=== PATIENT | female | born 1930 | race Caucasian/White ===

== ENCOUNTER 2019-07-20 16:45 | Inpatient (IN) ==
[2019-07-20] MEDS ORDERED: D5% in Water 1,000 ML IVC PRN (20:19)
[2019-07-20] MEDS ORDERED: Naloxone 0.4 MG/ML INJ IVP PRN (20:19)
[2019-07-20] MEDS ORDERED: Dextrose Gel 15 GM/37.5 ML TUBE PO PRN ×2 (20:19)
[2019-07-20] MEDS ORDERED: *HR* Dextrose 50 % in Water (Syg) 50 ML SYRINGE IVP PRN (20:19)
[2019-07-20] MEDS ORDERED: *HR* Heparin 5,000 UNIT/ML VIAL SQ SCH (22:00)
[2019-07-20] MEDS: 0.9 % Sodium Chloride 1,000 ML IVC SCH (22:00)
[2019-07-20] MEDS ORDERED: *HR* Heparin 5,000 UNIT/ML VIAL IVP PRN ×2 (22:13→22:14)
[2019-07-20] MEDS ORDERED: *HR* Heparin 5,000 UNIT/ML VIAL IVP ONE (22:14)
[2019-07-20 22:46] LABS: Sodium, Urine 86.1 mEq/L
[2019-07-20] MEDS: Heparin 25,000 UNIT/250 ML D5W 25,000 UNIT/250 ML IV.SOLN IVC SCH (23:26)
[2019-07-21 00:39] LABS: Hematocrit 38.4 % (35.3-44.9); Hemoglobin 12.1 g/dL (11.5-15.4); Mean Corpuscular HGB Conc 31.5 g/dL (31.6-35.5); Mean Corpuscular Hemoglobin 27.7 pg (28.0-33.3); Mean Corpuscular Volume 87.9 fL (83.0-100.0); Mean Platelet Volume 11.4 fL (9.4-12.4); Platelet Count 225 K/mcL (140-400); Red Blood Count 4.37 M/mcL (3.82-4.97); Red Cell Distribution Width 14.3 % (11.5-14.5); White Blood Count 7.2 K/mcL (4.3-11.1)
[2019-07-21 00:49] LABS: INR 1.2; Prothrombin Time 13.2 Seconds (9.4-12.1)
[2019-07-21 00:54] LABS: Heparin anti-factor XA UFH 1.18 IU/mL (0.30-0.70)
[2019-07-21 02:58] LABS: Basophils % 0.4 %; Hematocrit 37.1 % (35.3-44.9); Hemoglobin 11.5 g/dL (11.5-15.4); Immature Granulocytes % 0.4 % (0-4); Lymphocytes # 1.5 K/mcL (0.6-4.6); Lymphocytes % 21.2 %; Mean Corpuscular Volume 90.5 fL (83.0-100.0); Mean Platelet Volume 11.3 fL (9.4-12.4); Monocytes # 0.8 K/mcL (0.0-1.3); Monocytes % 11.4 %; Neutrophils # 4.7 K/mcL (1.6-8.9); Platelet Count 214 K/mcL (140-400); Red Cell Distribution Width 14.1 % (11.5-14.5); Segmented Neutrophils % 66.6 %
[2019-07-21 03:15] LABS: Albumin 3.3 g/dL (3.5-5.7); Albumin/Globulin Ratio 1.1 (1.1-2.2); Bilirubin,Total 0.6 mg/dL (0.3-1.0); Calcium 8.5 mg/dL (8.6-10.3); Globulin 2.9 g/dL (2.4-3.5); Magnesium 2.3 mg/dL (1.6-2.6); Phosphorous 3.3 mg/dL (2.7-4.5); Potassium 3.9 mEq/L (3.5-5.1); Total Protein 6.2 g/dL (6.4-8.9)
[2019-07-21 03:56] LABS: Estimated Average Glucose 134 mg/dl
[2019-07-21] MEDS: 0.9 % Sodium Chloride 1,000 ML IVC SCH ×2 (05:16→14:33)
[2019-07-21] MEDS: cefTRIAXone 1,000 MG in 0.9 % Sodium Chloride Mini Bag 100 ML IVPB SCH (11:48)
[2019-07-21 23:54] LABS: Bacteria,Urine Few per hpf (None-Few); Bilirubin,Urine Negative (Negative); Blood,Urine Negative (Negative); Clarity,Urine Cloudy (Clear); Color,Urine Yellow (Yellow); Glucose,Urine (UA) Normal (Normal); Hyaline Casts,Urine None Seen per lpf (None-Few); Ketones,Urine Negative (Negative); Leukocyte Esterase,Urine Large (Negative); Nitrite,Urine Negative (Negative); Protein,Urine Trace mg/dL (Neg-Trace); RBC,Urine 15-30 per hpf (0-3); Specific Gravity,Urine 1.015 (1.010-1.025); Squamous Epithelial Cell,Urine Few per lpf (None-Few); Urobilinogen,Urine Normal (Normal); WBC,Urine TNTC per hpf (0-3)
[2019-07-22] MEDS: Cholecalciferol (D-3) 1,000 UNIT (25MCG) TABLET PO SCH (07:55)
[2019-07-22] MEDS: 0.9 % Sodium Chloride 1,000 ML IVC SCH ×2 (07:55→09:54)
[2019-07-22] MEDS: Loratadine 10 MG TABLET PO SCH (07:55)
[2019-07-22] MEDS: Heparin 25,000 UNIT/250 ML D5W 25,000 UNIT/250 ML IV.SOLN IVC SCH (07:56)
[2019-07-22 08:42] LABS: Calcium 8.4 mg/dL (8.6-10.3); Potassium 4.1 mEq/L (3.5-5.1)
[2019-07-22 09:28] LABS: Basophils % 0.3 %; Hematocrit 37.9 % (35.3-44.9); Immature Granulocytes % 0.3 % (0-4); Lymphocytes # 1.2 K/mcL (0.6-4.6); Lymphocytes % 18.2 %; Mean Corpuscular HGB Conc 31.7 g/dL (31.6-35.5); Mean Corpuscular Hemoglobin 27.8 pg (28.0-33.3); Mean Corpuscular Volume 87.7 fL (83.0-100.0); Mean Platelet Volume 11.5 fL (9.4-12.4); Monocytes # 0.7 K/mcL (0.0-1.3); Monocytes % 10.4 %; Neutrophils # 4.6 K/mcL (1.6-8.9); Platelet Count 226 K/mcL (140-400); Red Blood Count 4.32 M/mcL (3.82-4.97); Red Cell Distribution Width 14.3 % (11.5-14.5); Segmented Neutrophils % 70.8 %; White Blood Count 6.5 K/mcL (4.3-11.1)
[2019-07-22] MEDS: cefTRIAXone 1,000 MG in 0.9 % Sodium Chloride Mini Bag 100 ML IVPB SCH (09:55)
[2019-07-22] MEDS ORDERED: Warfarin perPT PO PRN (18:00)
[2019-07-22] MEDS ORDERED: *HR* Warfarin 5 MG TABLET PO ONE (18:00)
[2019-07-23] MEDS: 0.9 % Sodium Chloride 1,000 ML IVC SCH (05:49)
[2019-07-23 06:38] LABS: Basophils % 0.3 %; Hematocrit 34.9 % (35.3-44.9); Hemoglobin 10.7 g/dL (11.5-15.4); Immature Granulocytes % 0.3 % (0-4); Lymphocytes # 1.2 K/mcL (0.6-4.6); Lymphocytes % 18.9 %; Mean Corpuscular HGB Conc 30.7 g/dL (31.6-35.5); Mean Corpuscular Hemoglobin 27.9 pg (28.0-33.3); Mean Corpuscular Volume 91.1 fL (83.0-100.0); Monocytes # 0.7 K/mcL (0.0-1.3); Monocytes % 10.8 %; Neutrophils # 4.2 K/mcL (1.6-8.9); Platelet Count 189 K/mcL (140-400); Red Blood Count 3.83 M/mcL (3.82-4.97); Red Cell Distribution Width 14.2 % (11.5-14.5); Segmented Neutrophils % 69.7 %; White Blood Count 6.1 K/mcL (4.3-11.1)
[2019-07-23 06:39] LABS: INR 1.1; Prothrombin Time 12.9 Seconds (9.4-12.1)
[2019-07-23 07:00] LABS: Potassium 3.8 mEq/L (3.5-5.1)
[2019-07-23] MEDS: cefTRIAXone 1,000 MG in 0.9 % Sodium Chloride Mini Bag 100 ML IVPB SCH (09:45)
[2019-07-23] MEDS: Cholecalciferol (D-3) 1,000 UNIT (25MCG) TABLET PO SCH (09:45)
[2019-07-23] MEDS: Loratadine 10 MG TABLET PO SCH (09:45)
[2019-07-23] MEDS: Acetaminophen 325 MG TABLET PO PRN ×2 (15:03→23:02)
[2019-07-23] MEDS: Heparin 25,000 UNIT/250 ML D5W 25,000 UNIT/250 ML IV.SOLN IVC SCH (15:25)
[2019-07-23] MEDS ORDERED: *HR* Warfarin 3 MG TABLET PO ONE (18:00)
[2019-07-24] MEDS: 0.9 % Sodium Chloride 1,000 ML IVC SCH ×2 (01:32→20:35)
[2019-07-24] MEDS: Heparin 25,000 UNIT/250 ML D5W 25,000 UNIT/250 ML IV.SOLN IVC SCH (01:58)
[2019-07-24 03:57] LABS: Basophils % 0.3 %; Hematocrit 35.5 % (35.3-44.9); Hemoglobin 10.8 g/dL (11.5-15.4); Immature Granulocytes % 0.5 % (0-4); Lymphocytes # 1.3 K/mcL (0.6-4.6); Lymphocytes % 19.3 %; Mean Corpuscular HGB Conc 30.4 g/dL (31.6-35.5); Mean Corpuscular Hemoglobin 27.8 pg (28.0-33.3); Mean Corpuscular Volume 91.3 fL (83.0-100.0); Monocytes # 0.7 K/mcL (0.0-1.3); Monocytes % 10.3 %; Neutrophils # 4.6 K/mcL (1.6-8.9); Platelet Count 187 K/mcL (140-400); Red Blood Count 3.89 M/mcL (3.82-4.97); Red Cell Distribution Width 14.2 % (11.5-14.5); Segmented Neutrophils % 69.6 %; White Blood Count 6.6 K/mcL (4.3-11.1)
[2019-07-24 04:05] LABS: INR 1.2; Prothrombin Time 13.7 Seconds (9.4-12.1)
[2019-07-24 04:15] LABS: Calcium 8.1 mg/dL (8.6-10.3)
[2019-07-24] MEDS: Acetaminophen 325 MG TABLET PO PRN ×2 (05:23→17:01)
[2019-07-24] MEDS: Cholecalciferol (D-3) 1,000 UNIT (25MCG) TABLET PO SCH (09:46)
[2019-07-24] MEDS: cefTRIAXone 1,000 MG in 0.9 % Sodium Chloride Mini Bag 100 ML IVPB SCH (09:46)
[2019-07-24] MEDS: Loratadine 10 MG TABLET PO SCH (09:46)
[2019-07-24] MEDS ORDERED: *HR* Warfarin 2 MG TABLET PO ONE (18:00)
[2019-07-25] MEDS: Heparin 25,000 UNIT/250 ML D5W 25,000 UNIT/250 ML IV.SOLN IVC SCH ×2 (01:29→03:57)
[2019-07-25] MEDS: Acetaminophen 325 MG TABLET PO PRN ×2 (05:56→21:25)
[2019-07-25 09:06] LABS: Basophils % 0.4 %; Hematocrit 38.1 % (35.3-44.9); Hemoglobin 11.9 g/dL (11.5-15.4); Immature Granulocytes % 0.4 % (0-4); Lymphocytes # 0.9 K/mcL (0.6-4.6); Lymphocytes % 12.2 %; Mean Corpuscular HGB Conc 31.2 g/dL (31.6-35.5); Mean Corpuscular Volume 89.6 fL (83.0-100.0); Mean Platelet Volume 10.8 fL (9.4-12.4); Monocytes # 0.7 K/mcL (0.0-1.3); Monocytes % 8.7 %; Platelet Count 212 K/mcL (140-400); Red Blood Count 4.25 M/mcL (3.82-4.97); Red Cell Distribution Width 14.3 % (11.5-14.5); Segmented Neutrophils % 78.3 %; White Blood Count 7.6 K/mcL (4.3-11.1)
[2019-07-25 09:14] LABS: INR 1.4; Prothrombin Time 16.4 Seconds (9.4-12.1)
[2019-07-25 09:24] LABS: Calcium 8.4 mg/dL (8.6-10.3)
[2019-07-25] MEDS: cefTRIAXone 1,000 MG in 0.9 % Sodium Chloride Mini Bag 100 ML IVPB SCH (09:37)
[2019-07-25] MEDS: Loratadine 10 MG TABLET PO SCH (09:39)
[2019-07-25] MEDS: Cholecalciferol (D-3) 1,000 UNIT (25MCG) TABLET PO SCH (09:39)
[2019-07-25] MEDS: 0.9 % Sodium Chloride 1,000 ML IVC SCH (16:48)
[2019-07-25] MEDS ORDERED: *HR* Warfarin 2 MG TABLET PO ONE (18:00)
[2019-07-26] MEDS: Heparin 25,000 UNIT/250 ML D5W 25,000 UNIT/250 ML IV.SOLN IVC SCH ×2 (04:03→04:05)
[2019-07-26 05:20] LABS: Hematocrit 35.4 % (35.3-44.9); Mean Corpuscular HGB Conc 31.1 g/dL (31.6-35.5); Mean Corpuscular Hemoglobin 27.8 pg (28.0-33.3); Mean Corpuscular Volume 89.6 fL (83.0-100.0); Mean Platelet Volume 10.4 fL (9.4-12.4); Platelet Count 193 K/mcL (140-400); Red Blood Count 3.95 M/mcL (3.82-4.97); Red Cell Distribution Width 14.5 % (11.5-14.5); Segmented Neutrophils % 69.3 %; White Blood Count 6.1 K/mcL (4.3-11.1)
[2019-07-26 05:21] LABS: Basophils % 0.5 %; Immature Granulocytes % 0.5 % (0-4); Lymphocytes # 1.2 K/mcL (0.6-4.6); Lymphocytes % 19.2 %; Monocytes # 0.6 K/mcL (0.0-1.3); Monocytes % 10.5 %; Neutrophils # 4.2 K/mcL (1.6-8.9)
[2019-07-26 05:28] LABS: INR 1.8; Prothrombin Time 20.2 Seconds (9.4-12.1)
[2019-07-26 05:47] LABS: Calcium 8.1 mg/dL (8.6-10.3); Potassium 4.1 mEq/L (3.5-5.1)
[2019-07-26] MEDS: Cholecalciferol (D-3) 1,000 UNIT (25MCG) TABLET PO SCH (09:08)
[2019-07-26] MEDS: Loratadine 10 MG TABLET PO SCH (09:09)
[2019-07-26] MEDS: cefTRIAXone 1,000 MG in 0.9 % Sodium Chloride Mini Bag 100 ML IVPB SCH (09:09)
[2019-07-26] MEDS: 0.9 % Sodium Chloride 1,000 ML IVC SCH (14:24)
[2019-07-26] MEDS: Acetaminophen 325 MG TABLET PO PRN ×2 (14:31→21:32)
[2019-07-26] MEDS ORDERED: *HR* Warfarin 3 MG TABLET PO ONE (18:00)
[2019-07-27 04:59] LABS: Basophils % 0.7 %; Hematocrit 37.7 % (35.3-44.9); Hemoglobin 11.7 g/dL (11.5-15.4); Immature Granulocytes % 0.7 % (0-4); Lymphocytes # 1.2 K/mcL (0.6-4.6); Mean Corpuscular Hemoglobin 27.7 pg (28.0-33.3); Mean Corpuscular Volume 89.1 fL (83.0-100.0); Monocytes # 0.6 K/mcL (0.0-1.3); Monocytes % 11.4 %; Neutrophils # 3.7 K/mcL (1.6-8.9); Platelet Count 210 K/mcL (140-400); Red Blood Count 4.23 M/mcL (3.82-4.97); Red Cell Distribution Width 14.8 % (11.5-14.5); Segmented Neutrophils % 66.2 %; White Blood Count 5.6 K/mcL (4.3-11.1)
[2019-07-27 05:05] LABS: INR 2.2; Prothrombin Time 25.2 Seconds (9.4-12.1)
[2019-07-27 05:17] LABS: Calcium 8.3 mg/dL (8.6-10.3); Potassium 4.1 mEq/L (3.5-5.1)
[2019-07-27] MEDS: Heparin 25,000 UNIT/250 ML D5W 25,000 UNIT/250 ML IV.SOLN IVC SCH (05:22)
[2019-07-27] MEDS: 0.9 % Sodium Chloride 1,000 ML IVC SCH (08:27)
[2019-07-27] MEDS: cefTRIAXone 1,000 MG in 0.9 % Sodium Chloride Mini Bag 100 ML IVPB SCH (08:40)
[2019-07-27] MEDS: Cholecalciferol (D-3) 1,000 UNIT (25MCG) TABLET PO SCH (08:40)
[2019-07-27] MEDS: Loratadine 10 MG TABLET PO SCH (08:40)
[2019-07-27 12:25] VITALS: BP 158/69
[2019-07-27] MEDS ORDERED: *HR* Warfarin 3 MG TABLET PO ONE (18:00)
== END 2019-07-27 14:26 | disposition home health service (06) | DRG 299 ==
LOC: 3ANU → SUATTDRO 18:14
PROVIDERS: ADMIT Internal Medicine; ATTEND Family Medicine

== ENCOUNTER 2019-11-14 01:08 | Inpatient (IN) ==
[2019-11-14] MEDS ORDERED: Naloxone 0.4 MG/ML INJ IVP PRN (04:58)
[2019-11-14] MEDS ORDERED: *HR* Heparin 5,000 UNIT/ML VIAL IVP ONE (05:26)
[2019-11-14] MEDS ORDERED: *HR* Heparin 5,000 UNIT/ML VIAL IVP PRN (05:26)
[2019-11-14] MEDS ORDERED: 0.9 % Sodium Chloride 1,000 ML IVC SCH (05:30)
[2019-11-14 06:21] LABS: Hematocrit 38.1 % (35.3-44.9); Hemoglobin 11.7 g/dL (11.5-15.4); Mean Corpuscular HGB Conc 30.7 g/dL (31.6-35.5); Mean Corpuscular Hemoglobin 27.3 pg (28.0-33.3); Mean Platelet Volume 11.3 fL (9.4-12.4); Platelet Count 186 K/mcL (140-400); Red Blood Count 4.28 M/mcL (3.82-4.97); Red Cell Distribution Width 14.1 % (11.5-14.5); White Blood Count 18.6 K/mcL (4.3-11.1)
[2019-11-14 06:41] LABS: Calcium 8.7 mg/dL (8.6-10.3); Potassium 4.1 mEq/L (3.5-5.1)
[2019-11-14] MEDS ORDERED: Aspirin 325 MG TABLET PO ONE (06:46)
[2019-11-14] MEDS: Heparin 25,000 UNIT/250 ML D5W 25,000 UNIT/250 ML IV.SOLN IVC SCH (06:47)
[2019-11-14 06:59] LABS: Thyroid Stimulating Hormone 2.639 mcIU/mL (0.340-5.600)
[2019-11-14] MEDS ORDERED: Vancomycin 1 EACH in 0.9 % Sodium Chloride 250 ML IVPB SCH (07:00)
[2019-11-14] MEDS ORDERED: Vancomycin 1,250 MG/262.5 ML IV.SOLN IVPB ONE (07:06)
[2019-11-14] MEDS ORDERED: Azithromycin 500 MG in 0.9 % Sodium Chloride 250 ML IVPB SCH (08:00)
[2019-11-14] MEDS ORDERED: Piperacillin/Tazobactam 3.375 GM in 0.9 % Sodium Chloride Mini Bag 100 ML IVPB SCH (08:00)
[2019-11-14] MEDS ORDERED: Warfarin perPT PO PRN (08:21)
[2019-11-14] MEDS ORDERED: cefTRIAXone 1,000 MG in Water for inj. (sterile) 10 ML IVP SCH (09:00)
[2019-11-14] MEDS: Loratadine 10 MG TABLET PO SCH (09:12)
[2019-11-14 12:44] LABS: Troponin I 2.58 ng/mL (< 0.04)
[2019-11-14] MEDS ORDERED: *HR* Warfarin 3 MG TABLET PO ONE (18:00)
[2019-11-14] MEDS: Piperacillin/Tazobactam 3.375 GM in 0.9 % Sodium Chloride Mini Bag 100 ML IVPB SCH (18:38)
[2019-11-15] MEDS: Piperacillin/Tazobactam 3.375 GM in 0.9 % Sodium Chloride Mini Bag 100 ML IVPB SCH ×3 (01:33→17:54)
[2019-11-15 04:22] LABS: Basophils % 0.2 %; Hematocrit 32.5 % (35.3-44.9); Immature Granulocytes % 0.6 % (0-4); Lymphocytes # 0.9 K/mcL (0.6-4.6); Lymphocytes % 7.6 %; Mean Corpuscular HGB Conc 31.1 g/dL (31.6-35.5); Mean Corpuscular Hemoglobin 27.4 pg (28.0-33.3); Mean Corpuscular Volume 88.1 fL (83.0-100.0); Mean Platelet Volume 11.6 fL (9.4-12.4); Monocytes # 0.5 K/mcL (0.0-1.3); Monocytes % 4.4 %; Neutrophils # 10.7 K/mcL (1.6-8.9); Platelet Count 147 K/mcL (140-400); Red Blood Count 3.69 M/mcL (3.82-4.97); Red Cell Distribution Width 14.4 % (11.5-14.5); Segmented Neutrophils % 87.2 %; White Blood Count 12.3 K/mcL (4.3-11.1)
[2019-11-15 04:23] LABS: Hemoglobin 10.1 g/dL (11.5-15.4)
[2019-11-15 04:31] LABS: Heparin anti-factor XA UFH 0.45 IU/mL (0.30-0.70); INR 1.7; Prothrombin Time 19.1 Seconds (9.4-12.1)
[2019-11-15 04:42] LABS: Albumin 2.7 g/dL (3.5-5.7); Albumin/Globulin Ratio 1.1 (1.1-2.2); Bilirubin,Direct 0.1 mg/dL (0.0-0.2); Bilirubin,Indirect 0.4 mg/dL (0.0-1.0); Bilirubin,Total 0.5 mg/dL (0.3-1.0); Calcium 7.8 mg/dL (8.6-10.3); Globulin 2.5 g/dL (2.4-3.5); Magnesium 2.1 mg/dL (1.6-2.6); Potassium 3.8 mEq/L (3.5-5.1); Total Protein 5.2 g/dL (6.4-8.9)
[2019-11-15] MEDS ORDERED: Famotidine 20 MG/2 ML VIAL IVP SCH (06:00)
[2019-11-15] MEDS: Heparin 25,000 UNIT/250 ML D5W 25,000 UNIT/250 ML IV.SOLN IVC SCH (06:08)
[2019-11-15] MEDS ORDERED: Aminoglycoside Consult 1 EACH MC ONE ×2 (07:50→10:21)
[2019-11-15] MEDS: Loratadine 10 MG TABLET PO SCH (09:01)
[2019-11-15] MEDS ORDERED: *HR* Warfarin 3 MG TABLET PO ONE (18:00)
[2019-11-16] MEDS: Piperacillin/Tazobactam 3.375 GM in 0.9 % Sodium Chloride Mini Bag 100 ML IVPB SCH (02:06)
[2019-11-16 04:19] LABS: Basophils % 0.2 %; Hematocrit 34.7 % (35.3-44.9); Hemoglobin 10.7 g/dL (11.5-15.4); Immature Granulocytes % 0.3 % (0-4); Lymphocytes % 11.1 %; Mean Corpuscular HGB Conc 30.8 g/dL (31.6-35.5); Mean Corpuscular Hemoglobin 27.6 pg (28.0-33.3); Mean Corpuscular Volume 89.7 fL (83.0-100.0); Mean Platelet Volume 11.4 fL (9.4-12.4); Monocytes # 0.4 K/mcL (0.0-1.3); Monocytes % 4.8 %; Neutrophils # 7.6 K/mcL (1.6-8.9); Platelet Count 151 K/mcL (140-400); Red Blood Count 3.87 M/mcL (3.82-4.97); Red Cell Distribution Width 14.4 % (11.5-14.5); Segmented Neutrophils % 83.6 %
[2019-11-16 04:28] LABS: INR 1.6; Prothrombin Time 17.7 Seconds (9.4-12.1)
[2019-11-16 04:38] LABS: Calcium 8.1 mg/dL (8.6-10.3); Magnesium 2.2 mg/dL (1.6-2.6)
[2019-11-16] MEDS: *HR* Heparin 5,000 UNIT/ML VIAL IVP PRN (05:17)
[2019-11-16] MEDS ORDERED: Famotidine 20 MG/2 ML VIAL IVP SCH (09:00)
[2019-11-16] MEDS: Loratadine 10 MG TABLET PO SCH (10:00)
[2019-11-16] MEDS: Ampicillin 2 GM in 0.9 % Sodium Chloride Mini Bag 100 ML IVPB SCH ×4 (10:01→23:59)
[2019-11-16] MEDS: Heparin 25,000 UNIT/250 ML D5W 25,000 UNIT/250 ML IV.SOLN IVC SCH (11:55)
[2019-11-16] MEDS: Melatonin 3 MG TABLET PO PRN (23:58)
[2019-11-17 02:33] LABS: Basophils % 0.5 %; Hematocrit 34.2 % (35.3-44.9); Hemoglobin 10.6 g/dL (11.5-15.4); Immature Granulocytes % 0.5 % (0-4); Lymphocytes # 1.3 K/mcL (0.6-4.6); Lymphocytes % 16.5 %; Mean Corpuscular Hemoglobin 27.4 pg (28.0-33.3); Mean Corpuscular Volume 88.4 fL (83.0-100.0); Mean Platelet Volume 11.3 fL (9.4-12.4); Monocytes # 0.5 K/mcL (0.0-1.3); Monocytes % 6.9 %; Neutrophils # 5.9 K/mcL (1.6-8.9); Platelet Count 163 K/mcL (140-400); Red Blood Count 3.87 M/mcL (3.82-4.97); Red Cell Distribution Width 14.3 % (11.5-14.5); Segmented Neutrophils % 75.6 %; White Blood Count 7.8 K/mcL (4.3-11.1)
[2019-11-17 02:36] LABS: INR 1.8; Prothrombin Time 19.9 Seconds (9.4-12.1)
[2019-11-17 02:53] LABS: Calcium 7.8 mg/dL (8.6-10.3); Magnesium 2.1 mg/dL (1.6-2.6); Potassium 3.8 mEq/L (3.5-5.1)
[2019-11-17] MEDS: Loratadine 10 MG TABLET PO SCH (09:16)
[2019-11-17] MEDS: Ampicillin 2 GM in 0.9 % Sodium Chloride Mini Bag 100 ML IVPB SCH ×2 (09:17→17:04)
[2019-11-17] MEDS: Heparin 25,000 UNIT/250 ML D5W 25,000 UNIT/250 ML IV.SOLN IVC SCH (17:05)
[2019-11-17] MEDS: Melatonin 3 MG TABLET PO PRN (19:56)
[2019-11-17] MEDS: *HR* Heparin 5,000 UNIT/ML VIAL IVP PRN (20:10)
[2019-11-18] MEDS: Ampicillin 2 GM in 0.9 % Sodium Chloride Mini Bag 100 ML IVPB SCH ×4 (00:01→23:37)
[2019-11-18 00:30] LABS: Heparin anti-factor XA UFH 0.78 IU/mL (0.30-0.70); INR 1.7; Prothrombin Time 19.5 Seconds (9.4-12.1)
[2019-11-18 00:39] LABS: Basophils % 0.5 %; Hematocrit 33.6 % (35.3-44.9); Hemoglobin 10.2 g/dL (11.5-15.4); Immature Granulocytes % 1.1 % (0-4); Lymphocytes # 1.3 K/mcL (0.6-4.6); Lymphocytes % 20.9 %; Mean Corpuscular HGB Conc 30.4 g/dL (31.6-35.5); Mean Corpuscular Hemoglobin 26.8 pg (28.0-33.3); Mean Corpuscular Volume 88.2 fL (83.0-100.0); Mean Platelet Volume 11.2 fL (9.4-12.4); Monocytes # 0.7 K/mcL (0.0-1.3); Monocytes % 11.4 %; Neutrophils # 4.1 K/mcL (1.6-8.9); Platelet Count 163 K/mcL (140-400); Red Blood Count 3.81 M/mcL (3.82-4.97); Red Cell Distribution Width 14.3 % (11.5-14.5); Segmented Neutrophils % 66.1 %; White Blood Count 6.2 K/mcL (4.3-11.1)
[2019-11-18 00:47] LABS: Calcium 7.7 mg/dL (8.6-10.3); Magnesium 2.1 mg/dL (1.6-2.6)
[2019-11-18 06:21] LABS: Heparin anti-factor XA UFH 0.53 IU/mL (0.30-0.70)
[2019-11-18 08:42] LABS: INR 1.7; Prothrombin Time 19.2 Seconds (9.4-12.1)
[2019-11-18] MEDS: Loratadine 10 MG TABLET PO SCH (10:09)
[2019-11-18 12:02] LABS: Basophils % 0.6 %; Hematocrit 36.8 % (35.3-44.9); Hemoglobin 11.1 g/dL (11.5-15.4); Immature Granulocytes % 2.2 % (0-4); Lymphocytes # 1.1 K/mcL (0.6-4.6); Lymphocytes % 16.7 %; Mean Corpuscular HGB Conc 30.2 g/dL (31.6-35.5); Mean Corpuscular Hemoglobin 26.9 pg (28.0-33.3); Mean Corpuscular Volume 89.3 fL (83.0-100.0); Mean Platelet Volume 10.9 fL (9.4-12.4); Monocytes # 0.7 K/mcL (0.0-1.3); Monocytes % 11.2 %; Neutrophils # 4.5 K/mcL (1.6-8.9); Platelet Count 179 K/mcL (140-400); Red Blood Count 4.12 M/mcL (3.82-4.97); Red Cell Distribution Width 14.2 % (11.5-14.5); Segmented Neutrophils % 69.3 %; White Blood Count 6.4 K/mcL (4.3-11.1)
[2019-11-18 12:23] LABS: Calcium 8.2 mg/dL (8.6-10.3); Potassium 3.9 mEq/L (3.5-5.1)
[2019-11-18] MEDS: Furosemide 20 MG TABLET PO SCH (16:29)
[2019-11-18] MEDS ORDERED: *HR* Warfarin 3 MG TABLET PO ONE (18:00)
[2019-11-18] MEDS: Heparin 25,000 UNIT/250 ML D5W 25,000 UNIT/250 ML IV.SOLN IVC SCH (19:34)
[2019-11-19] MEDS ORDERED: Acetaminophen 325 MG TABLET PO PRN (01:30)
[2019-11-19 02:49] LABS: Basophils # 0.1 K/mcL (0.0-0.2); Basophils % 0.6 %; Hematocrit 35.3 % (35.3-44.9); Hemoglobin 10.6 g/dL (11.5-15.4); Immature Granulocytes % 2.9 % (0-4); Lymphocytes # 1.3 K/mcL (0.6-4.6); Lymphocytes % 15.3 %; Mean Corpuscular Hemoglobin 26.9 pg (28.0-33.3); Mean Corpuscular Volume 89.6 fL (83.0-100.0); Mean Platelet Volume 11.2 fL (9.4-12.4); Monocytes # 0.9 K/mcL (0.0-1.3); Monocytes % 10.1 %; Neutrophils # 6.2 K/mcL (1.6-8.9); Platelet Count 190 K/mcL (140-400); Red Blood Count 3.94 M/mcL (3.82-4.97); Red Cell Distribution Width 14.2 % (11.5-14.5); Segmented Neutrophils % 71.1 %; White Blood Count 8.7 K/mcL (4.3-11.1)
[2019-11-19 03:03] LABS: Calcium 7.9 mg/dL (8.6-10.3); Magnesium 2.1 mg/dL (1.6-2.6); Phosphorous 3.1 mg/dL (2.7-4.5); Potassium 4.1 mEq/L (3.5-5.1)
[2019-11-19 03:07] LABS: INR 1.4
[2019-11-19] MEDS ORDERED: *HR* Midazolam HCl 5 MG/5 ML VIAL IVP PRN (08:19)
[2019-11-19] MEDS ORDERED: Lidocaine Viscous Oral Soln 15 ML SOLUTION MM PRN (08:19)
[2019-11-19] MEDS ORDERED: 0.9 % Sodium Chloride 500 ML IVC ONE (08:19)
[2019-11-19] MEDS: *HR* FentaNYL (PF) 100 MCG/2 ML VIAL IVP PRN ×2 (08:45→08:55)
[2019-11-19] MEDS: Ampicillin 2 GM in 0.9 % Sodium Chloride Mini Bag 100 ML IVPB SCH ×2 (10:05→15:41)
[2019-11-19] MEDS: Loratadine 10 MG TABLET PO SCH (11:31)
[2019-11-19] MEDS: Furosemide 20 MG TABLET PO SCH (11:31)
[2019-11-19] MEDS ORDERED: *HR* Warfarin 3 MG TABLET PO ONE (18:00)
[2019-11-19] MEDS: Furosemide 20 MG/2 ML VIAL IVP SCH (18:10)
[2019-11-19] MEDS: Heparin 25,000 UNIT/250 ML D5W 25,000 UNIT/250 ML IV.SOLN IVC SCH (21:06)
[2019-11-20] MEDS: Ampicillin 2 GM in 0.9 % Sodium Chloride Mini Bag 100 ML IVPB SCH ×3 (01:15→17:34)
[2019-11-20 03:36] LABS: Calcium 8.2 mg/dL (8.6-10.3); Magnesium 2.1 mg/dL (1.6-2.6); Phosphorous 3.8 mg/dL (2.7-4.5)
[2019-11-20] MEDS ORDERED: 0.9 % Sodium Chloride 500 ML ONE (08:06)
[2019-11-20] MEDS ORDERED: 0.9 % Sodium Chloride 500 ML IVC ONE (08:06)
[2019-11-20 08:21] LABS: ABG Base Excess -2 mEq/L (-2 to 3); ABG HCO3 22 mEq/L (21-27); ABG Oxygen Saturation 92 % (95-98); ABG PCO2 31 mmHg (35-45); ABG PH 7.45 pH Units (7.32-7.45); ABG PO2 59 mmHg (85-104); ABG TCO2 23 mEq/L (20-26)
[2019-11-20] MEDS: Loratadine 10 MG TABLET PO SCH (08:47)
[2019-11-20] MEDS: Furosemide 20 MG/2 ML VIAL IVP SCH ×2 (08:49→17:34)
[2019-11-20 09:06] LABS: Hematocrit 29.7 % (35.3-44.9); Mean Corpuscular HGB Conc 30.3 g/dL (31.6-35.5); Mean Corpuscular Hemoglobin 27.8 pg (28.0-33.3); Mean Corpuscular Volume 91.7 fL (83.0-100.0); Mean Platelet Volume 11.3 fL (9.4-12.4); Platelet Count 246 K/mcL (140-400); Red Blood Count 3.24 M/mcL (3.82-4.97); Red Cell Distribution Width 14.2 % (11.5-14.5)
[2019-11-20 09:17] LABS: Albumin 2.8 g/dL (3.5-5.7); Albumin/Globulin Ratio 1.3 (1.1-2.2); Bilirubin,Direct 0.2 mg/dL (0.0-0.2); Bilirubin,Indirect 0.3 mg/dL (0.0-1.0); Bilirubin,Total 0.5 mg/dL (0.3-1.0); Calcium 7.7 mg/dL (8.6-10.3); Globulin 2.2 g/dL (2.4-3.5); INR 1.4; Prothrombin Time 16.2 Seconds (9.4-12.1)
[2019-11-20 09:21] LABS: Troponin I 0.07 ng/mL (< 0.04)
[2019-11-20 14:13] LABS: Hematocrit 27.5 % (35.3-44.9); Hemoglobin 8.3 g/dL (11.5-15.4)
[2019-11-20] MEDS ORDERED: *HR* Warfarin 3 MG TABLET PO ONE (18:00)
[2019-11-20 20:00] LABS: Hematocrit 24.1 % (35.3-44.9); Hemoglobin 7.6 g/dL (11.5-15.4)
[2019-11-21 08:21] LABS: Hematocrit 21.7 % (35.3-44.9); Hemoglobin 6.7 g/dL (11.5-15.4); Mean Corpuscular HGB Conc 30.9 g/dL (31.6-35.5); Mean Corpuscular Volume 90.8 fL (83.0-100.0); Mean Platelet Volume 11.2 fL (9.4-12.4); Platelet Count 250 K/mcL (140-400); Red Blood Count 2.39 M/mcL (3.82-4.97); Red Cell Distribution Width 14.7 % (11.5-14.5); White Blood Count 17.3 K/mcL (4.3-11.1)
[2019-11-21 08:23] LABS: INR 1.3; Prothrombin Time 14.5 Seconds (9.4-12.1)
[2019-11-21 08:34] LABS: Calcium 7.7 mg/dL (8.6-10.3); Potassium 3.9 mEq/L (3.5-5.1)
[2019-11-21] MEDS ORDERED: 0.9 % Sodium Chloride 250 ML IVC SCH (09:00)
[2019-11-21] MEDS ORDERED: 0.9 % Sodium Chloride 500 ML IVC SCH (09:00)
[2019-11-21] MEDS: Ampicillin 2 GM in 0.9 % Sodium Chloride Mini Bag 100 ML IVPB SCH ×3 (09:30→17:27)
[2019-11-21] MEDS: Furosemide 20 MG/2 ML VIAL IVP SCH ×2 (09:30→17:27)
[2019-11-21] MEDS: Loratadine 10 MG TABLET PO SCH (09:30)
[2019-11-21 14:33] LABS: Hematocrit 27.1 % (35.3-44.9)
[2019-11-21 14:35] LABS: Hemoglobin 8.3 g/dL (11.5-15.4)
[2019-11-21 20:39] LABS: Hematocrit 23.2 % (35.3-44.9); Hemoglobin 7.4 g/dL (11.5-15.4)
[2019-11-21] MEDS: Sennosides/Docusate Sodium TABLET PO SCH (22:28)
[2019-11-22 01:50] LABS: INR 1.2; Prothrombin Time 13.6 Seconds (9.4-12.1)
[2019-11-22 01:51] LABS: Hematocrit 21.8 % (35.3-44.9); Hemoglobin 6.9 g/dL (11.5-15.4); Mean Corpuscular HGB Conc 31.7 g/dL (31.6-35.5); Mean Corpuscular Hemoglobin 27.7 pg (28.0-33.3); Mean Corpuscular Volume 87.6 fL (83.0-100.0); Mean Platelet Volume 11.2 fL (9.4-12.4); Nucleated Red Blood Cells 0.2 /100 WBC (0); Platelet Count 238 K/mcL (140-400); Red Blood Count 2.49 M/mcL (3.82-4.97); Red Cell Distribution Width 14.4 % (11.5-14.5); White Blood Count 17.8 K/mcL (4.3-11.1)
[2019-11-22 01:57] LABS: Calcium 7.2 mg/dL (8.6-10.3); Phosphorous 3.2 mg/dL (2.7-4.5); Potassium 4.1 mEq/L (3.5-5.1)
[2019-11-22] MEDS: Ampicillin 2 GM in 0.9 % Sodium Chloride Mini Bag 100 ML IVPB SCH ×2 (02:04→08:38)
[2019-11-22 02:12] LABS: Lymphocytes # 2.5 K/mcL (0.6-4.6); Monocytes # 1.1 K/mcL (0.0-1.3); Neutrophils # 14.2 K/mcL (1.6-8.9)
[2019-11-22] MEDS: Heparin 25,000 UNIT/250 ML D5W 25,000 UNIT/250 ML IV.SOLN IVC SCH (07:25)
[2019-11-22] MEDS ORDERED: 0.9 % Sodium Chloride 250 ML IVC SCH (07:45)
[2019-11-22] MEDS: Loratadine 10 MG TABLET PO SCH (08:43)
[2019-11-22] MEDS: Sennosides/Docusate Sodium TABLET PO SCH ×2 (08:43→22:13)
[2019-11-22] MEDS: Furosemide 20 MG/2 ML VIAL IVP SCH ×2 (08:43→16:41)
[2019-11-22] MEDS ORDERED: Lactulose Oral Soln 20 GM/30 ML UDC PO ONE (09:11)
[2019-11-22] MEDS ORDERED: 0.9 % Sodium Chloride 250 ML ONE (09:59)
[2019-11-22 18:07] LABS: Hematocrit 30.7 % (35.3-44.9); Hemoglobin 10.2 g/dL (11.5-15.4)
[2019-11-22] MEDS: Amoxicillin 500 MG CAPSULE PO SCH (22:13)
[2019-11-23 05:22] LABS: Basophils # 0.1 K/mcL (0.0-0.2); Basophils % 0.3 %; Hemoglobin 9.1 g/dL (11.5-15.4); Immature Granulocytes % 4.5 % (0-4); Lymphocytes # 1.3 K/mcL (0.6-4.6); Lymphocytes % 7.3 %; Mean Corpuscular HGB Conc 32.5 g/dL (31.6-35.5); Mean Corpuscular Hemoglobin 27.7 pg (28.0-33.3); Mean Corpuscular Volume 85.1 fL (83.0-100.0); Monocytes # 1.1 K/mcL (0.0-1.3); Monocytes % 6.2 %; Nucleated Red Blood Cells 0.2 /100 WBC (0); Platelet Count 253 K/mcL (140-400); Red Blood Count 3.29 M/mcL (3.82-4.97); Red Cell Distribution Width 15.9 % (11.5-14.5); Segmented Neutrophils % 81.7 %; White Blood Count 17.2 K/mcL (4.3-11.1)
[2019-11-23 05:24] LABS: INR 1.1; Prothrombin Time 12.9 Seconds (9.4-12.1)
[2019-11-23 05:38] LABS: Calcium 7.4 mg/dL (8.6-10.3); Magnesium 2.1 mg/dL (1.6-2.6); Phosphorous 3.2 mg/dL (2.7-4.5); Potassium 3.7 mEq/L (3.5-5.1)
[2019-11-23] MEDS: Furosemide 20 MG/2 ML VIAL IVP SCH ×2 (07:54→16:38)
[2019-11-23] MEDS: Sennosides/Docusate Sodium TABLET PO SCH ×2 (08:03→23:06)
[2019-11-23] MEDS: Loratadine 10 MG TABLET PO SCH (08:04)
[2019-11-23] MEDS: Amoxicillin 500 MG CAPSULE PO SCH (08:04)
[2019-11-23] MEDS: cefTRIAXone 2,000 MG in Water for inj. (sterile) 20 ML IVP SCH (10:34)
[2019-11-24 02:05] LABS: Basophils # 0.1 K/mcL (0.0-0.2); Basophils % 0.4 %; Eosinophils % 0.1 %; Hematocrit 29.3 % (35.3-44.9); Hemoglobin 9.4 g/dL (11.5-15.4); Immature Granulocytes % 4.1 % (0-4); Lymphocytes # 1.5 K/mcL (0.6-4.6); Lymphocytes % 8.4 %; Mean Corpuscular HGB Conc 32.1 g/dL (31.6-35.5); Mean Corpuscular Hemoglobin 27.9 pg (28.0-33.3); Mean Corpuscular Volume 86.9 fL (83.0-100.0); Mean Platelet Volume 11.1 fL (9.4-12.4); Monocytes # 1.1 K/mcL (0.0-1.3); Monocytes % 6.1 %; Neutrophils # 14.7 K/mcL (1.6-8.9); Platelet Count 270 K/mcL (140-400); Red Blood Count 3.37 M/mcL (3.82-4.97); Red Cell Distribution Width 16.3 % (11.5-14.5); Segmented Neutrophils % 80.9 %; White Blood Count 18.1 K/mcL (4.3-11.1)
[2019-11-24 02:11] LABS: INR 1.1; Prothrombin Time 12.5 Seconds (9.4-12.1)
[2019-11-24 02:22] LABS: Calcium 7.5 mg/dL (8.6-10.3); Magnesium 2.1 mg/dL (1.6-2.6); Phosphorous 3.1 mg/dL (2.7-4.5); Potassium 4.1 mEq/L (3.5-5.1)
[2019-11-24] MEDS: Furosemide 20 MG/2 ML VIAL IVP SCH (08:57)
[2019-11-24] MEDS: Sennosides/Docusate Sodium TABLET PO SCH (09:05)
[2019-11-24] MEDS: Loratadine 10 MG TABLET PO SCH (09:05)
[2019-11-24] MEDS: cefTRIAXone 2,000 MG in Water for inj. (sterile) 20 ML IVP SCH (09:05)
[2019-11-24 11:33] VITALS: BP 99/69
== END 2019-11-24 14:21 | disposition home health service (06) | DRG 871 ==
LOC: 2NENU → SUATTDRO 02:37 → 2ANU 11-15 20:41 → SUATTDRO 11-15 22:06
PROVIDERS: ADMIT Student in an Organized Health Care Education/Training Program; ATTEND Family Medicine